=== PATIENT | female | born 1990 | race Caucasian/White ===

== ENCOUNTER 2016-10-08 19:12 | Emergency (ER) | payer OTHER ==
[~2016-10-08 19:12] MED LIST: ADDERALL5 MG; AMITRIPTYLINE H50 MG; KEFLEX500 M1 PO; TOPAMAX15 MG; ZOLOFT20 MG/1 ML
== END 2016-10-08 19:20 | disposition home or self-care (01) ==
LOC: SED 19:12
DX: H66.92 Otitis media, unspecified, left ear (principal)
CPT/HCPCS: 99282